=== PATIENT | female | born 1995 | race Caucasian/White ===

== ENCOUNTER 2021-01-05 11:11 | Emergency (ER) | payer OTHER ==
[~2021-01-05] VITALS: Ht 165.1 cm; Wt 81.7 kg
--- NOTE | ~2021-01-05 | EMS ---
[address] [address] EMS Patient Care Report Name: EMMY FERRARI Room #: REG MRadha#: [id number] Admission: 01/05/21 Attend Phys: Discharge: Date of : [birth year] Report #: [id number] THIS REPORT FOR: //name// Report Transmitted: 01/05/2021 11:16 EMS Care Summary [place], [place]/[facility] Incident [id number] @ 01/05/2021 10:26 Incident Location [address] Patient EMMY FERRARI Female, 25 Years 1995 Patient Address Patient History Schizophrenia, Patient Allergies No known allergies, Patient Medications None Reported, Chief Complaint Left knee pain Disposition Transported No Lights/[place] Dispatch Reason Sick Person Transported To [facility] Narrative Medic 36 arrived on scene to find a 25 y/o female patient laying on the ground complaining of left knee pain. No gross trauma or deformities were noted. Only injury noted was 2 small non bleeding abrasions on left knee. Good PMS in all extremities. PT was lifted onto the EMS cot using a stacy cider maker, secured with seat belts and loaded into the ambulance without incident. Pt was then transported to [facility]. Pt care was turned over to ER staff without incident. M36 placed back in service. [address] [address] EMS Patient Care Report Name: EMMY FERRARI Room #: REG PAULY Myles#: [id number] Admission: 01/05/21 Attend Phys: Discharge: Date of : [birth year] Report #: [id number] Initial Vitals @10:53P: 78,R: 14,BP: 103/72,Pain: 10/10,GCS: 15,Glucose: 121,SpO2: 94,Revised Trauma: 12, @10:57P: 78,R: 16,BP: 136/97,Pain: 10/10,GCS: 15,CO: 5,SpO2: 93,Revised Trauma: 12, Assessments @10:55MENTAL:Event Oriented,Person Oriented,Place Oriented,Time Oriented,SKIN:HEENT:LUNG SOUNDS:General: No Abnormalities,ABDOMEN:General: No Abnormalities,PELVIS//GI:EXTREMITIES:Left Leg: Other,Left Arm: No Abnormalities,Right Arm: No Abnormalities,Right Leg: No Abnormalities,PULSE:NEURO:Slurred Speech, Impression Extremity Pain Procedures @10:53ALS AssessmentResponse: UnchangedSucceeded@10:55StretcherResponse: Unchanged@10:55BLS AssessmentResponse: Unchanged Timeline 10:24,Call Received 10:24,Dispatch Notified 10:26,Dispatched 10:26,En Route 10:36,On Scene 10:38,At Patient 10:53,BP: 103/72 M,PULSE: 78,RR: 14 R,SPO2: 94 Ox,ETCO2: ,B,PAIN: 10,GCS: 15, 10:53,ALS Assessment,Response: UnchangedSucceeded, 10:55,Stretcher,Response: Unchanged 10:55,BLS Assessment,Response: Unchanged 10:56,Depart Scene 10:57,BP: 136/97 M,PULSE: 78,RR: 16 R,SPO2: 93 Ox,ETCO2: ,BG: ,PAIN: 10,GCS: 15, 11:05,At Destination 11:23,Call Closed Disclaimer v1.1 Copyright 2020 [employer] This EMS Care Summary contains data elements from the applicable legal record (which may be displayed differently). It is designed to provide pertinent information for the following purposes: continuity of care, clinical quality, and state data reporting. The complete legal record is available to ED staff and administrators of the receiving hospital in [email or web address] Patient Tracker. All data [address] [address] EMS Patient Care Report Name: EMMY FERRARI Room #: REG PAULY Myles#: [id number] Admission: 01/05/21 Attend Phys: Discharge: Date of : [birth year] Report #: [id number] is provided "as is."
[2021-01-05] MEDS ORDERED: ASPERCREME1 EACH TOP (11:30)
[2021-01-05] MEDS ORDERED: TYLENOL325 MG PO (11:30)
[2021-01-05] MEDS ORDERED: ASPIRIN EC325 M1 PO (11:30)
[2021-01-05] MEDS ORDERED: CHLORPROMAZINE100 MG PO (11:31)
[2021-01-05] MEDS ORDERED: FAMOTIDINE 20 M20 MG PO (11:31)
[2021-01-05] MEDS ORDERED: CRANBERRY200 MG PO (11:31)
[2021-01-05] MEDS ORDERED: METFORMIN HCL500 M3 PO (11:32)
[2021-01-05] MEDS ORDERED: FLUTICASONE PRO30 G1 TOP (11:32)
[2021-01-05] MEDS ORDERED: FUROSEMIDE 20 M20 MG PO (11:32)
[2021-01-05] MEDS ORDERED: LEVO-T25 MCG PO (11:32)
[2021-01-05] MEDS ORDERED: MILK OF MA400 MG/5 M PO (11:34)
[2021-01-05] MEDS ORDERED: NYSTATIN1000000 UN TOP (11:35)
[2021-01-05] MEDS ORDERED: OLANZAPINE ODT5 MG PO (11:35)
[2021-01-05] MEDS ORDERED: ZOFRAN4 MG PO (11:35)
[2021-01-05] MEDS ORDERED: FLOMAX0.4 MG PO (11:36)
[2021-01-05] MEDS ORDERED: POTASSIUM20 PO (11:36)
[2021-01-05] MEDS ORDERED: PROAIR HFA8.5 GM INH (11:36)
[2021-01-05] MEDS ORDERED: PROPRANOLOL 1010 MG PO (11:36)
[2021-01-05] MEDS ORDERED: DESYREL150 MG PO (11:37)
[2021-01-05] MEDS ORDERED: VALPROIC A250 MG/51 PO (11:38)
[2021-01-05] MEDS ORDERED: VITAMINC500 PO (11:38)
[2021-01-05 12:47] VITALS: BP 101/77
== END 2021-01-05 16:04 ==
LOC: ER 11:11
DX: S82.132A Displaced fracture of medial condyle of left tibia, initial encounter for closed fracture (principal); E11.9 Type 2 diabetes mellitus without complications; E78.5 Hyperlipidemia, unspecified; I10 Essential (primary) hypertension; F20.9 Schizophrenia, unspecified; F31.9 Bipolar disorder, unspecified; F41.9 Anxiety disorder, unspecified; K21.9 Gastro-esophageal reflux disease without esophagitis; E66.9 Obesity, unspecified; Z79.891 Long term (current) use of opiate analgesic; Z79.84 Long term (current) use of oral hypoglycemic drugs; Z79.51 Long term (current) use of inhaled steroids; Z79.82 Long term (current) use of aspirin; Z79.899 Other long term (current) drug therapy; Z79.1 Long term (current) use of non-steroidal anti-inflammatories (NSAID); Z88.8 Allergy status to other drugs, medicaments and biological substances; W18.39XA Other fall on same level, initial encounter; Y93.89 Activity, other specified; Y92.89 Other specified places as the place of occurrence of the external cause; Y99.8 Other external cause status

== ENCOUNTER 2021-03-09 16:11 | Emergency (ER) | payer OTHER ==
[~2021-03-09] VITALS: Ht 165.1 cm; Wt 81.7 kg
--- NOTE | ~2021-03-09 | EMS ---
[address] [address] EMS Patient Care Report Name: EMMY FERRARI Room #: DEP PAULY Myles#: [id number] Admission: 03/09/21 Attend Phys: Discharge: 03/09/21 Date of : [birth year] Report #: [id number] THIS REPORT FOR: //name// Report Transmitted: 03/12/2021 18:28 EMS Care Summary [place], [place]/[facility] Incident [id number] @ 03/09/2021 15:05 Incident Location [address] [place] [address] 309- Patient EMMY FERRARI Female, 25 Years 1995 Patient Address [address] [place] [address] Patient History Diabetes,Hypertension (HTN),Hyperlipidemia,Gastro-Esophageal Reflux Disease (GERD),Morbid Obesity,Anxiety Disorder (Panic Attacks),Schizophrenia,Hypothyroidism, Patient Allergies Other drug allergy, Patient Medications None Reported, Chief Complaint Glogged G Tube Disposition Transported No Lights/[place] Dispatch Reason Sick Person Transported To [facility] Narrative MEDIC 41 WAS DISPATCHED TO A HEALTH CARE FACILITY. [facility] FOUND [address] [address] EMS Patient Care Report Name: EMMY FERRARI Room #: DEP MonaeTal#: [id number] Admission: 03/09/21 Attend Phys: Discharge: 03/09/21 Date of : [birth year] Report #: [id number] PUMPER WITH PT AND NURSE IN THE ROOM. PT HAS A CLOGGED GTUBE. PT WAS TRANSFERRED TO THE STRETCHER AND TAKEN TO AMBULANCE. NURSE AT FACILITY REQUESTED [facility]. IN THE THE AMBULANCE THE PT WAS STRAPPED IN TO THE STRETCHER, AND WAS GIVEN A MASK. EMS GATHERED VITALS. PT REMAINED STABLE THROUGHOUT TRANSPORT. REPORT WAS GIVEN TO NURSE AT [facility]. M41 BACK IN SERVICE. ZENON PARMAR EMTB. Initial Vitals @15:33P: 100,R: 16,BP: 132/89,Pain: 0/10,GCS: 15,SpO2: 96,Revised Trauma: 12, @15:39P: 105,R: 18,BP: 129/93,Pain: 0/10,GCS: 15,SpO2: 95,Revised Trauma: 12, Assessments @15:32MENTAL:Place Oriented,Event Oriented,Person Oriented,Time Oriented,SKIN:HEENT:Eyes: Right Pupil: 3-mm,Eyes: Left Pupil: 3-mm,LUNG SOUNDS:ABDOMEN:PELVIS//GI:EXTREMITIES:Capillary Refill: Left Upper: < 2 Sec,PULSE:Radial: 2+ Normal,NEURO: Impression Gastrostomy malfunction Procedures @15:32ALS AssessmentResponse: UnchangedSucceeded@15:36BLS AssessmentResponse: Unchanged Timeline 15:01,Call Received 15:01,Dispatch Notified 15:05,Dispatched 15:05,En Route 15:29,On Scene 15:32,At Patient 15:32,ALS Assessment,Response: UnchangedSucceeded, 15:33,BP: 132/89 M,PULSE: 100,RR: 16 R,SPO2: 96 Ox,ETCO2: ,BG: ,PAIN: 0,GCS: 15, 15:36,BLS Assessment,Response: Unchanged 15:38,Depart Scene 15:39,BP: 129/93 M,PULSE: 105,RR: 18 R,SPO2: 95 Ox,ETCO2: ,BG: ,PAIN: 0,GCS: 15, 15:43,At Destination 16:00,Call Closed [facility] [address] [place] [address] EMS Patient Care Report Name: EMMY FERRARI Room #: DEP Shar#: [id number] Admission: 03/09/21 Attend Phys: Discharge: 03/09/21 Date of : [birth year] Report #: [id number] Disclaimer v1.1 Copyright 2020 [employer] This EMS Care Summary contains data elements from the applicable legal record (which may be displayed differently). It is designed to provide pertinent information for the following purposes: continuity of care, clinical quality, and state data reporting. The complete legal record is available to ED staff and administrators of the receiving hospital in [employer] Patient Tracker. All data is provided "as is."
[~2021-03-09 16:11] MED LIST: ASPERCREME1 EACH TOP; ASPIRIN EC325 M1 PO; CHLORPROMAZINE100 MG PO; CRANBERRY200 MG PO; DESYREL150 MG PO; FAMOTIDINE 20 M20 MG PO; FLOMAX0.4 MG PO; FLUTICASONE PRO30 G1 TOP; FUROSEMIDE 20 M20 MG PO; LEVO-T25 MCG PO; METFORMIN HCL500 M3 PO; MILK OF MA400 MG/5 M PO; NYSTATIN1000000 UN TOP; OLANZAPINE ODT5 MG PO; POTASSIUM20 PO; PROAIR HFA8.5 GM INH; PROPRANOLOL 1010 MG PO; TYLENOL325 MG PO; VALPROIC A250 MG/51 PO; VITAMINC500 PO; ZOFRAN4 MG PO
[2021-03-09 16:17] VITALS: BP 150/100
== END 2021-03-09 18:58 | disposition home or self-care (01) ==
LOC: ER 16:11
DX: K94.23 Gastrostomy malfunction (principal); E11.9 Type 2 diabetes mellitus without complications; E78.5 Hyperlipidemia, unspecified; I10 Essential (primary) hypertension; F20.9 Schizophrenia, unspecified; F41.9 Anxiety disorder, unspecified; F31.9 Bipolar disorder, unspecified; E66.9 Obesity, unspecified; K21.9 Gastro-esophageal reflux disease without esophagitis; Z68.30 Body mass index [BMI] 30.0-30.9, adult; Z79.899 Other long term (current) drug therapy; Z79.891 Long term (current) use of opiate analgesic; Z79.82 Long term (current) use of aspirin; Z79.51 Long term (current) use of inhaled steroids; Z79.1 Long term (current) use of non-steroidal anti-inflammatories (NSAID); Z79.84 Long term (current) use of oral hypoglycemic drugs; Z88.8 Allergy status to other drugs, medicaments and biological substances; Y84.8 Other medical procedures as the cause of abnormal reaction of the patient, or of later complication, without mention of misadventure at the time of the procedure; Y92.89 Other specified places as the place of occurrence of the external cause